=== PATIENT | female | born 2000 | race African-American/Black ===

== ENCOUNTER 2020-12-14 15:02 | Emergency (ER) | payer MEDICAID ==
--- NOTE | 2020-12-14 16:28 | EDM.PDOC ---
ED HPI GENERAL MEDICAL PROBLEM - General Chief Complaint: CONE EXAMINER Problem Stated Complaint: STOMACH PAINS Time Seen by Provider: 12/14/20 15:59 Source of Information: Reports: Patient History Limitations: Reports: No Limitations - History of Present Illness INITIAL COMMENTS - FREE TEXT/NARRATIVE: HISTORY AND PHYSICAL: History of present illness: The patient is a 20-year-old female who presents to the emergency department with complaints of 3 days of light vaginal bleeding. The patient states that she recently moved from [place] to [place]. Her last normal period was in early August. She said she took a test in October which came back positive. She has states that she had a period of time where she was nauseated but that has since passed. She did vomit once yesterday. She states that she has had a couple episodes of diarrhea over the last week. The patient denies any cramping at this time. She has not been seen by an CONE EXAMINER. Patient denies any fever, chills, headache, change in vision, syncope or near syncope. Denies any chest pain, back pain, shortness of breath or cough. Denies any abdominal pain, constipation or dysuria. Has not noted any blood in urine or stool. Patient has been eating and drinking appropriately. Review of systems: As per history of present illness and below otherwise all systems reviewed and negative. Past medical history: As per history of present illness and as reviewed below otherwise noncontributory. Surgical history: As per history of present illness and as reviewed below otherwise noncontributory. Social history: See social history for further information Family history: As per history of present illness and as reviewed below otherwise noncontributory. Physical exam: General: Well developed and well nourished. Alert and orientated x 3. Nontoxic in appearance and in no acute distress. Vital signs are stable and have been reviewed by me. Nursing notes were reviewed. HEENT: Atraumatic, normocephalic, pupils equal and reactive bilaterally, negative for conjunctival pallor or scleral icterus, mucous membranes moist, TMs normal bilaterally, throat clear, neck supple, nontender, trachea midline. No drooling or trismus noted. No meningeal signs. No hot potato voice noted. Lungs: Clear to auscultation bilaterally. No wheezes, rales, or rhonchi. Chest nontender. Normal work of breathing, no accessory muscles used. Heart: S1S2, regular rate and rhythm without overt murmur, gallops, or rubs. No JVD. No peripheral edema Abdomen: Soft, nondistended, nontender. Normoactive bowel sounds. Negative for masses or costovertebral tenderness. Genitourinary: External genitalia normal. Moderate of blood clots noted, cervix closed. Skin: Intact, warm, dry. No lesions or rashes noted. Hematologic: No petechiae or purpra. Mucosa appropriate color and normal nail bed color and refill. Extremities: Atraumatic, moves all extremities per self without difficulty or deficits, negative for cords or calf pain. Neurovascular unremarkable. Neuro: Awake, alert, oriented. Cranial nerves II through XII unremarkable. Cerebellum unremarkable. Motor and sensory unremarkable throughout. Exam nonfocal. Psychiatric: Mood and affect are appropriate. Normal thought process. Answering questions appropriately. Notes: *This patient was seen and evaluated during the 2019 SARS-CoV-2 novel coronavirus pandemic period. Community viral transmission is ongoing at time of this encounter and the emergency department is operating under pandemic response procedures. As the patient is unsure when she became I will do a CBC, CMP, quantitative hCG, type and screen, UA, and OB US. Dr. Pierre did a bedside US and OB US canceled. See procedure note. The patient states that she has a history of PCOS and previously her periods had not been normal. She now states that she had been on control in August when she had her last period. She states that even that menstrual cycle was light. 1745 the patient's quant is 3051 which would put the at around 6 weeks. We will obtain the ultrasound due to the vaginal exam of moderate amount of blood clots, and patient's history of PCOS and irregular menstrual cycle. The patient is agreeable. Vaginal exam completed. The cervical OS did not appear open. Th was a moderate amount of blood clots. The patient tolerated the procedure well. 17:50 The patient refused the OB us. I educated the patient on possible threatened and she still declined the OB US. I will discharge the patient on Nitrofurantoin 100mg po BID 10 days for a URI. I have talked with the patient about today's findings, in addition to providing specific details for plan of care. Reassessment at the time of disposition demonstrates that the patient is in no acute distress. The patient is stable for discharge, counseling was provided and we discussed in great detail signs and symptoms that would prompt them to return to the Emergency Department. Medication, follow up and supportive care measures were reviewed and discussed. Voices understanding and is agreeable to plan of care. Denies any further questions or concerns at this time. Diagnostics: CBC, CMP, quantitative hCG, type and screen, UA Prescription: Nitrofurantoin 100mg po BID 10 days Impression: Threatened , UTI Plan: 1. You were evaluated today on an emergent basis. Your complaints of vaginal bleeding after a positive test was evaluated with blood work and a bedside ultrasound. Your quantitative hCG was 3051 which depicts a of 5 to 6 weeks. Your bedside ultrasound also depicted a of approximately 6 weeks. You did have a moderate amount of blood clots and on your vaginal exam. You have declined your OB US. You are still at risk for a miscarriage. If you have any increase pain or bleeding please return to the emergency department. Urinalysis showed an infection for which I have started you on an antibiotic. 2. You can alternate Tylenol and ibuprofen as needed for pain and fever management. 3. We encourage you to follow up with your primary care provider and/or recommended specialist in the next few days for re-evaluation and further care/management. 4. If your symptoms should worsen, new symptoms develop or any of the signs and symptoms we discussed should arise please return to the emergency room or call 911 (if needed). Definitive disposition and diagnosis as appropriate pending reevaluation and review of above. . lower abdomen Pain Score (Numeric/FACES): 2 - Related Data Allergies Allergy/AdvReac Type Severity Reaction Status Date / Time No Known Allergies Allergy Verified 12/14/20 15:50 Home Meds: Home Meds nitrofurantoin macrocrystaL [Nitrofurantoin] 100 mg PO BID 10 Days #19 capsule 12/14/20 [Rx] Past Medical History CONE EXAMINER History: Reports: Polycystic Ovaries - Infectious Disease History Infectious Disease History: Reports: None Social & Family History - Family History Family Medical History: No Pertinent Family History - Tobacco Use Packs/Tins Daily: 0.5 - Caffeine Use Caffeine Use: Reports: None - Recreational Drug Use Recreational Drug Use: No ED ROS GENERAL - Review of Systems Review Of Systems: Comprehensive ROS is negative, except as noted in HPI. ED EXAM - Physical Exam Exam: See Below (See dictation) Course - Vital Signs Last Recorded V/S: Last Vital Signs Temp 98 F 12/14/20 15:48 Pulse 93 12/14/20 15:48 Resp 16 12/14/20 15:48 BP 119/75 12/14/20 15:48 Pulse Ox 98 12/14/20 15:48 - Orders/Labs/Meds Labs: Laboratory Tests 12/14/20 12/14/20 12/14/20 Range/Units 15:40 15:40 16:23 WBC 6.48 (4.0-11.0) K/uL RBC 4.23 L (4.30-5.90) M/uL Hgb 12.0 (12.0-16.0) g/dL Hct 35.8 L (36.0-46.0) % MCV 84.6 (80.0-98.0) fL MCH 28.4 (27.0-32.0) pg MCHC 33.5 (31.0-37.0) g/dL RDW Std Deviation 48.1 (28.0-62.0) fl RDW Coeff of Yunior 16 H (11.0-15.0) % Plt Count 214 (150-400) K/uL MPV 9.30 (7.40-12.00) fL Neut % (Auto) 54.6 (48.0-80.0) % Lymph % (Auto) 35.8 (16.0-40.0) % [place] % (Auto) 6.6 (0.0-15.0) % Eos % (Auto) 2.8 (0.0-7.0) % Baso % (Auto) 0.2 (0.0-1.5) % Neut # (Auto) 3.5 (1.4-5.7) K/uL Lymph # (Auto) 2.3 (0.6-2.4) K/uL [place] # (Auto) 0.4 (0.0-0.8) K/uL Eos # (Auto) 0.2 (0.0-0.7) K/uL Baso # (Auto) 0.0 (0.0-0.1) K/uL Nucleated RBC % 0.0 /100WBC Nucleated RBCs # 0 K/uL Sodium (136-145) mmol/L Potassium (3.5-5.1) mmol/L Chloride (98-107) mmol/L Carbon Dioxide (21.0-32.0) mmol/L BUN (7.0-18.0) mg/dL Creatinine (0.6-1.0) mg/dL Est Cr Clr Drug Dosing mL/min Estimated GFR (MDRD) ml/min Glucose (74-106) mg/dL Calcium (8.5-10.1) mg/dL Total Bilirubin (0.2-1.0) mg/dL AST (15-37) IU/L ALT (14-63) IU/L Alkaline Phosphatase (46-116) U/L Total Protein (6.4-8.2) g/dL Albumin (3.4-5.0) g/dL Globulin (2.6-4.0) g/dL Albumin/Globulin Ratio (0.9-1.6) HCG, Quant mIU/mL Urine Color YELLOW Urine Appearance SLT CLOUDY Urine pH 5.5 (5.0-8.0) Ur Specific [place] 1.025 (1.001-1.035) Urine Protein 30 H (NEGATIVE) mg/dL Urine Glucose (UA) NEGATIVE (NEGATIVE) mg/dL Urine Ketones NEGATIVE (NEGATIVE) mg/dL Urine Occult Blood LARGE H (NEGATIVE) Urine Nitrite NEGATIVE (NEGATIVE) Urine Bilirubin NEGATIVE (NEGATIVE) Urine Urobilinogen 0.2 (<2.0) EU/dL Ur Leukocyte Esterase NEGATIVE (NEGATIVE) Urine RBC 4-5 (0-2/HPF) Urine WBC 4-6 (0-5/HPF) Ur Epithelial Cells FEW (NONE-FEW) Urine Bacteria 2+ H (NEGATIVE) Urine Mucus LIGHT (NONE-MOD) Urine HCG, Qual POSITIVE (NEGATIVE) Blood Type Antibody Screen 12/14/20 12/14/20 12/14/20 Range/Units 16:23 16:23 16:26 WBC (4.0-11.0) K/uL RBC (4.30-5.90) M/uL Hgb (12.0-16.0) g/dL Hct (36.0-46.0) % MCV (80.0-98.0) fL MCH (27.0-32.0) pg MCHC (31.0-37.0) g/dL RDW Std Deviation (28.0-62.0) fl RDW Coeff of Yuinor (11.0-15.0) % Plt Count (150-400) K/uL MPV (7.40-12.00) fL Neut % (Auto) (48.0-80.0) % Lymph % (Auto) (16.0-40.0) % Talbot % (Auto) (0.0-15.0) % Eos % (Auto) (0.0-7.0) % Baso % (Auto) (0.0-1.5) % Neut # (Auto) (1.4-5.7) K/uL Lymph # (Auto) (0.6-2.4) K/uL [place] # (Auto) (0.0-0.8) K/uL Eos # (Auto) (0.0-0.7) K/uL Baso # (Auto) (0.0-0.1) K/uL Nucleated RBC % /100WBC Nucleated RBCs # K/uL Sodium 138 (136-145) mmol/L Potassium 4.2 (3.5-5.1) mmol/L Chloride 104 (98-107) mmol/L Carbon Dioxide 24.9 (21.0-32.0) mmol/L BUN 11 (7.0-18.0) mg/dL Creatinine 0.8 (0.6-1.0) mg/dL Est Cr Clr Drug Dosing 113.16 mL/min Estimated GFR (MDRD) > 60.0 ml/min Glucose 96 (74-106) mg/dL Calcium 9.4 (8.5-10.1) mg/dL Total Bilirubin 0.5 (0.2-1.0) mg/dL AST 23 (15-37) IU/L ALT 39 (14-63) IU/L Alkaline Phosphatase 53 (46-116) U/L Total Protein 7.2 (6.4-8.2) g/dL Albumin 3.4 (3.4-5.0) g/dL Globulin 3.8 (2.6-4.0) g/dL Albumin/Globulin Ratio 0.9 (0.9-1.6) HCG, Quant 3051.0 mIU/mL Urine Color Urine Appearance Urine pH (5.0-8.0) Ur Specific [place] (1.001-1.035) Urine Protein (NEGATIVE) mg/dL Urine Glucose (UA) (NEGATIVE) mg/dL Urine Ketones (NEGATIVE) mg/dL Urine Occult Blood (NEGATIVE) Urine Nitrite (NEGATIVE) Urine Bilirubin (NEGATIVE) Urine Urobilinogen (<2.0) EU/dL Ur Leukocyte Esterase (NEGATIVE) Urine RBC (0-2/HPF) Urine WBC (0-5/HPF) Ur Epithelial Cells (NONE-FEW) Urine Bacteria (NEGATIVE) Urine Mucus (NONE-MOD) Urine HCG, Qual (NEGATIVE) Blood Type O POSITIVE Antibody Screen NEGATIVE Meds: Medications Discontinued Medications Generic Name Dose Route Start Last Admin Trade Name Freq PRN Reason Stop Dose Admin Ciprofloxacin 500 mg 12/14/20 17:49 12/14/20 17:52 Ciprofloxacin 500 Mg Tab PO 12/14/20 17:50 Not Given ONETIME ONE Nitrofurantoin Macrocrystals 100 mg 12/14/20 17:51 12/14/20 18:09 Nitrofurantoin Monohydrate/Macrocrystalline 100 Mg Cap PO 12/14/20 17:52 100 mg ONETIME ONE Administration Departure - Departure Time of Disposition: 18:13 Disposition: Home, Self-Care 01 Condition: Good Clinical Impression: Threatened UTI (urinary tract infection) during Qualifiers: Trimester: first trimester Qualified Code(s): O23.41 - Unspecified infection of urinary tract in , first trimester - Discharge Information *PRESCRIPTION DRUG MONITORING PROGRAM REVIEWED*: Not Applicable *COPY OF PRESCRIPTION DRUG MONITORING REPORT IN PATIENT LORENA: Not Applicable Prescriptions: nitrofurantoin macrocrystaL [Nitrofurantoin] 100 mg PO BID 10 Days #19 capsule Instructions: Threatened Miscarriage, and Urinary Tract Infection Referrals: PCP,None [Primary Care Provider] - Forms: ED Department Discharge Additional Instructions: The following information is given to patients seen in the emergency department who are being discharged to home. This information is to outline your options for follow-up care. We provide all patients seen in our emergency department with a follow-up referral. The need for follow-up, as well as the timing and circumstances, are variable depending upon the specifics of your emergency department visit. If you don't have a primary care physician on staff, we will provide you with a referral. We always advise you to contact your personal physician following an emergency department visit to inform them of the circumstance of the visit and for follow-up with them and/or the need for any referrals to a consulting specialist. The emergency department will also refer you to a specialist when appropriate. This referral assures that you have the opportunity for follow-up care with a specialist. All of these measure are taken in an effort to provide you with optimal care, which includes your follow-up. Under all circumstances we always encourage you to contact your private physician who remains a resource for coordinating your care. When calling for follow-up care, please make the office aware that this follow-up is from your recent emergency room visit. If for any reason you are refused follow-up, please contact the [facility] Emergency Department at and asked to speak to the emergency department charge nurse. [facility] [address] [place] [id number] [facility] [address] [place] [id number] Plan: 1. You were evaluated today on an emergent basis. Your complaints of vaginal bleeding after a positive test was evaluated with blood work and a bedside ultrasound. Your quantitative hCG was 3051 which depicts a of 5 to 6 weeks. Your bedside ultrasound also depicted a of approximately 6 weeks. You did have a moderate amount of blood clots and on your vaginal exam. You have declined your OB US. You are still at risk for a miscarriage. If you have any increase pain or bleeding please return to the emergency department. Urinalysis showed an infection for which I have started you on an antibiotic. 2. You can alternate Tylenol and ibuprofen as needed for pain and fever management. 3. We encourage you to follow up with your primary care provider and/or recommended specialist in the next few days for re-evaluation and further care/management. 4. If your symptoms should worsen, new symptoms develop or any of the signs and symptoms we discussed should arise please return to the emergency room or call 911 (if needed). Sepsis Event Note (ED) - Evaluation Sepsis Screening Result: No Definite Risk - Focused Exam Vital Signs: Vital Signs Temp Pulse Resp BP Pulse Ox 12/14/20 15:48 98 F 93 16 119/75 98
[2020-12-14 16:59] LABS: BLOOD UREA NITROGEN,BUN 11 mg/dL (7.0-18.0); CARBON DIOXIDE,CO2 24.9 mmol/L (21.0-32.0); CHLORIDE,CL 104 mmol/L (98-107); GLUCOSE RANDOM 96 mg/dL (74-106); POTASSIUM,K 4.2 mmol/L (3.5-5.1); SODIUM,NA 138 mmol/L (136-145)
--- NOTE | 2020-12-14 17:04 | PCM.SN.2 ---
- Free Text/Narrative Note: Bedside transabdominal OB ultrasound Two views obtained. There is a single live intrauterine , heart tones present. No obvious pelvic free fluid. Interpretation: Single Live IUP
[2020-12-14] MEDS ORDERED: Ciprofloxacin 500 MG Tab PO ONE (17:49)
[2020-12-14] MEDS ORDERED: Nitrofurantoin Monohydrate/Macrocrystalline 100 MG Cap PO ONE (17:51)
== END 2020-12-14 18:26 | disposition home or self-care (01) ==
LOC: MW.ED 15:02
DX: O20.0 Threatened abortion (principal); O23.41 Unspecified infection of urinary tract in pregnancy, first trimester; Z72.0 Tobacco use
CPT/HCPCS: 36415; 80053; 81001; 81025; 84702; 85025; 86850; 86900; 86901; 99284; A9270; 99283

== ENCOUNTER 2020-12-16 08:51 | Observation (INO) | payer MEDICAID ==
[2020-12-16] MEDS ORDERED: Lactated Ringers 1,000 ML IV ONE (09:57)
[2020-12-16] MEDS ORDERED: Tranexamic Acid 1,000 MG in Sodium Chloride 0.9% 100 ML IV ONE (10:29)
[2020-12-16 10:46] LABS: BLOOD UREA NITROGEN,BUN 12 mg/dL (7.0-18.0); CARBON DIOXIDE,CO2 24.6 mmol/L (21.0-32.0); CHLORIDE,CL 106 mmol/L (98-107); GLUCOSE RANDOM 96 mg/dL (74-106); POTASSIUM,K 4.1 mmol/L (3.5-5.1); SODIUM,NA 142 mmol/L (136-145)
--- NOTE | 2020-12-16 10:48 | PCM.HP.2 ---
H&P History of Present Illness - General Date of Service: 12/16/20 Admit Problem/Dx: First trimester vaginal bleeding Source of Information: Patient History Limitations: Reports: No Limitations - History of Present Illness Initial Comments - Free Text/Narative: 20 year old G1 at approximately 6 weeks gestation presented to the ED with vaginal bleeding. She was evaluated in the ED two days prior with vaginal bleeding as well. At the initial evaluation, her Hgb was 12 and bHCG was 3051, corresponding to approximately 5-6 weeks gestation. Gestational sac with pole and hearts tones were noted on bed side US per ED provider at that time. Of note, she was also diagnosed with a UTI and antibiotics were prescribed. She was discharged in stable condition and instructed to make an appointment with an OBGYN for close follow up. She noted heavier bleeding and cramping around 0700 this morning and return to the ED. Per ED provider, she had heavy vaginal bleeding with clots, approximately 750cc out in ED. Abdominal US was performed and gestational sac with pole noted to be within the lower uterine segment. No heart tones noted today. Hgb was 10 and bHCG decreased to 1477, consistent with incomplete . Upon my arrival to the ED, the patient was tachycardic and complaining of lightheadedness and dizziness. 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 - Infectious Disease History Infectious Disease History: Reports: None Social & Family History - Family History Family Medical History: No Pertinent Family History - Caffeine Use Caffeine Use: Reports: None H&P Review of Systems - Review of Systems: Review Of Systems: See Below General: Reports: Fatigue HEENT: Reports: No Symptoms Pulmonary: Reports: No Symptoms Cardiovascular: Reports: Lightheadedness Gastrointestinal: Reports: Abdominal Pain, Nausea Genitourinary: Reports: Pain Musculoskeletal: Reports: Back Pain Skin: Reports: No Symptoms Psychiatric: Reports: No Symptoms Neurological: Reports: Dizziness Exam - Exam Exam: See Below - Vital Signs Vital Signs: Last Vital Signs Temp 98.0 F 12/16/20 08:51 Pulse 107 H 12/16/20 10:12 Resp 16 12/16/20 10:12 BP 124/49 L 12/16/20 10:12 Pulse Ox 100 12/16/20 10:12 Weight: 165 lb - Exam General: Alert Lungs: Normal Respiratory Effort Cardiovascular: Tachycardia GI/Abdominal Exam: Soft, Tender (Female) Exam: Fundal Height (6-8 week size), Vaginal Bleeding Rectal (Female) Exam: Deferred Back Exam: Normal Inspection Extremities: Normal Range of Motion, Non-Tender, No Pedal Edema Skin: Warm, Dry, Intact Neuro Extensive - Mental Status: Alert, Normal Mood/Affect Psychiatric: Normal Mood - Patient Data Lab Results Last 24 hrs: Laboratory Results - last 24 hr 12/16/20 12/16/20 12/16/20 Range/Units 09:50 09:50 09:50 WBC 11.72 H (4.0-11.0) K/uL RBC 3.64 L (4.30-5.90) M/uL Hgb 10.4 L (12.0-16.0) g/dL Hct 31.0 L (36.0-46.0) % MCV 85.2 (80.0-98.0) fL MCH 28.6 (27.0-32.0) pg MCHC 33.5 (31.0-37.0) g/dL RDW Std Deviation 48.6 (28.0-62.0) fl RDW Coeff of Yunior 16 H (11.0-15.0) % Plt Count 223 (150-400) K/uL MPV 9.40 (7.40-12.00) fL Neut % (Auto) 69.9 (48.0-80.0) % Lymph % (Auto) 20.3 (16.0-40.0) % Carter % (Auto) 8.0 (0.0-15.0) % Eos % (Auto) 1.7 (0.0-7.0) % Baso % (Auto) 0.1 (0.0-1.5) % Neut # (Auto) 8.2 H (1.4-5.7) K/uL Lymph # (Auto) 2.4 (0.6-2.4) K/uL Carter # (Auto) 0.9 H (0.0-0.8) K/uL Eos # (Auto) 0.2 (0.0-0.7) K/uL Baso # (Auto) 0.0 (0.0-0.1) K/uL Nucleated RBC % 0.0 /100WBC Nucleated RBCs # 0 K/uL Sodium 142 (136-145) mmol/L Potassium 4.1 (3.5-5.1) mmol/L Chloride 106 (98-107) mmol/L Carbon Dioxide 24.6 (21.0-32.0) mmol/L BUN 12 (7.0-18.0) mg/dL Creatinine 0.8 (0.6-1.0) mg/dL Est Cr Clr Drug Dosing TNP Estimated GFR (MDRD) > 60.0 ml/min Glucose 96 (74-106) mg/dL Calcium 9.3 (8.5-10.1) mg/dL Total Bilirubin 0.5 (0.2-1.0) mg/dL AST 18 (15-37) IU/L ALT 23 (14-63) IU/L Alkaline Phosphatase 48 (46-116) U/L Total Protein 6.2 L (6.4-8.2) g/dL Albumin 3.1 L (3.4-5.0) g/dL Globulin 3.1 (2.6-4.0) g/dL Albumin/Globulin Ratio 1.0 (0.9-1.6) HCG, Quant 1477.0 mIU/mL Crossmatch See Detail Result Diagrams: 12/16/20 11:15 12/16/20 09:50 Sepsis Event Note - Evaluation Sepsis Screening Result: No Definite Risk - Focused Exam Vital Signs: Vital Signs Temp Pulse Resp BP Pulse Ox 12/16/20 10:12 107 H 16 124/49 L 100 12/16/20 09:50 113 H 18 134/90 100 12/16/20 09:27 90 18 123/91 H 95 12/16/20 08:51 98.0 F 90 18 124/80 100 Problem List Initiated/Reviewed/Updated: Yes Orders Last 24hrs: Active Orders 24 hr Category Date Time Status OB Transvaginal [US] Stat Exams 12/16/20 09:24 Taken RED BLOOD CELLS LP [BBK] Stat Lab 12/16/20 09:50 Results TYPE AND SCREEN [BBK] Stat Lab 12/16/20 09:50 Results Lactated Ringers [Ringers, Lactated] 1,000 ml Med 12/16/20 09:57 Active IV .BOLUS Medication Orders Lactated Ringer's (Ringers, Lactated) 1,000 mls @ 999 mls/hr IV .BOLUS ONE Stop: 12/16/20 10:57 Last Admin: 12/16/20 09:59 Dose: 999 mls/hr Documented by: LAILA Assessment/Plan Comment:: 20 year old G1 at approximately 6 weeks gestation with incomplete * Options for management reviewed including surgical treatment of heavy vaginal bleeding. Risks of suction dilation and curettage discussed including infection, bleeding with need for blood transfusion, uterine perforation with need for additional procedures and remote risk of anesthesia complications including . Questions elicited and answered. * Anesthesia and OR were notified of patient's status and need to proceed with urgent suction dilation and curettage. Type and cross for 2u of pRBCs was ordered per ED physician, however, due to patient's symptoms and ongoing blood loss, 1u pRBCs along with TXA was transfused en route to the OR. * Will proceed with suction dilation and curettage for incomplete . - Mortality Measure Prognosis:: Good
[2020-12-16] MEDS ORDERED: Ondansetron 4 MG/2 ML SDV ONE ×2 (11:05)
[2020-12-16] MEDS ORDERED: Propofol 200 MG/20 ML SDV ONE (11:05)
[2020-12-16] MEDS ORDERED: Lidocaine 2% 5 ML SDV ONE (11:05)
[2020-12-16] MEDS ORDERED: Metoclopramide 10 MG/2 ML SDV ONE (11:06)
[2020-12-16] MEDS ORDERED: Methylergonovine 0.2 MG/1 ML Amp ONE (11:09)
[2020-12-16] MEDS ORDERED: Dexamethasone 4 MG/ML 5 ML MDV ONE (11:14)
[2020-12-16] MEDS ORDERED: Misoprostol 200 MCG Tab ONE (11:15)
--- NOTE | 2020-12-16 11:16 | US ---
INDICATION: Heavy bleeding TECHNIQUE: Ultrasound OB pelvis transabdominal and transvaginal. Real-time schmitz-scale imaging of the pelvis was performed. COMPARISON: None FINDINGS: Sonographic images demonstrate a gestational sac with a pole in the lower uterine segment. The gestational sac is somewhat oblong in shape. There is no apparent cardiac activity. There is a normal appearing yolk sac. There are no gross abnormalities noted within the embryo at this early state of development. The placenta has not yet developed. There is no sign of perigestational hemorrhage. The ovaries are of normal size. There are no suspicious fluid collections noted in the cul-de-sac. IMPRESSION: Demonstration of a low lying gestational sac and pole measuring 8 weeks 5 days without cardiac activity. These findings are concerning for spontaneous . Recommend continued follow-up with serial beta HCG and ultrasound. Dictated by Royce Simon MD @ 12/16/2020 11:15:[address] Royce Simon @ Dec 16 2020 11:15AM
[2020-12-16] MEDS ORDERED: Oxytocin 10 Units/1 ML SDV ONE ×2 (11:22→11:29)
[2020-12-16] MEDS ORDERED: Carboprost Tromethamine 250 MCG/1 ML Amp ONE (11:23)
[2020-12-16] MEDS ORDERED: Ketorolac 30 MG/ML SDV IVPUSH PRN (11:35)
[2020-12-16] MEDS ORDERED: Ketorolac 30 MG/ML SDV IVPUSH ONE (11:35)
[2020-12-16] MEDS ORDERED: Ondansetron 4 MG/2 ML SDV IVPUSH PRN ×2 (11:35→11:43)
[2020-12-16] MEDS ORDERED: Promethazine 25 MG/ML SDV IM PRN (11:35)
[2020-12-16] MEDS ORDERED: Acetaminophen/oxyCODONE 325-5 MG Tab PO PRN (11:35)
[2020-12-16] MEDS ORDERED: Morphine 4 MG/ML Syringe IVPUSH PRN (11:35)
[2020-12-16] MEDS ORDERED: Naloxone 0.4 MG/ML Syringe IVPUSH PRN (11:43)
[2020-12-16] MEDS ORDERED: fentaNYL 100 MCG/2 ML SDV IVPUSH PRN (11:43)
[2020-12-16] MEDS ORDERED: Albuterol 0.083% 2.5 MG/3 ML Neb Soln NEB PRN (11:43)
[2020-12-16] MEDS ORDERED: HYDROmorphone 2 MG/ML Syringe IVPUSH PRN (11:43)
[2020-12-16] MEDS ORDERED: Morphine 10 MG/ML Syringe IVPUSH PRN (11:43)
[2020-12-16] MEDS ORDERED: Metoclopramide 10 MG/2 ML SDV IVPUSH PRN (11:43)
--- NOTE | 2020-12-16 11:46 | PCM.PREANE ---
Preanesthetic Assessment - Anesthesia/Transfusion/Family Hx Anesthesia History: Prior Anesthesia Without Reaction Family History of Anesthesia Reaction: No Transfusion History: No Prior Transfusion(s) - Review of Systems General: No Symptoms, Weakness, Fatigue Pulmonary: No Symptoms Cardiovascular: No Symptoms, Lightheadedness Gastrointestinal: No Symptoms Neurological: No Symptoms Other: Reports: None - Physical Assessment NPO Status Date: 12/16/20 NPO Status Time: 05:00 Vital Signs: Last Vital Signs Temp 98.0 F 12/16/20 08:51 Pulse 127 H 12/16/20 10:50 Resp 20 12/16/20 10:50 BP 106/78 12/16/20 10:50 Pulse Ox 100 12/16/20 10:50 Weight: 165 lb ASA Class: 2E Mental Status: Alert & Oriented x3 Airway Class: Mallampati = 1 Dentition: Reports: Normal Dentition Thyro-Mental Finger Breadths: 4 Mouth Opening Finger Breadths: 4 ROM/Head Extension: Full Lungs: Clear to Auscultation, Normal Respiratory Effort Cardiovascular: Regular Rate, Regular Rhythm - Lab Values: Laboratory Last Values WBC 11.72 K/uL (4.0-11.0) H 12/16/20 09:50 RBC 3.64 M/uL (4.30-5.90) L 12/16/20 09:50 Hgb 9.5 g/dL (12.0-16.0) L 12/16/20 11:15 Hct 28.0 % (36.0-46.0) L 12/16/20 11:15 MCV 85.2 fL (80.0-98.0) 12/16/20 09:50 MCH 28.6 pg (27.0-32.0) 12/16/20 09:50 MCHC 33.5 g/dL (31.0-37.0) 12/16/20 09:50 RDW Std Deviation 48.6 fl (28.0-62.0) 12/16/20 09:50 RDW Coeff of Yunior 16 % (11.0-15.0) H 12/16/20 09:50 Plt Count 223 K/uL (150-400) 12/16/20 09:50 MPV 9.40 fL (7.40-12.00) 12/16/20 09:50 Neut % (Auto) 69.9 % (48.0-80.0) 12/16/20 09:50 Lymph % (Auto) 20.3 % (16.0-40.0) 12/16/20 09:50 Perkins % (Auto) 8.0 % (0.0-15.0) 12/16/20 09:50 Eos % (Auto) 1.7 % (0.0-7.0) 12/16/20 09:50 Baso % (Auto) 0.1 % (0.0-1.5) 12/16/20 09:50 Neut # (Auto) 8.2 K/uL (1.4-5.7) H 12/16/20 09:50 Lymph # (Auto) 2.4 K/uL (0.6-2.4) 12/16/20 09:50 Perkins # (Auto) 0.9 K/uL (0.0-0.8) H 12/16/20 09:50 Eos # (Auto) 0.2 K/uL (0.0-0.7) 12/16/20 09:50 Baso # (Auto) 0.0 K/uL (0.0-0.1) 12/16/20 09:50 Nucleated RBC % 0.0 /100WBC 12/16/20 09:50 Nucleated RBCs # 0 K/uL 12/16/20 09:50 Sodium 142 mmol/L (136-145) 12/16/20 09:50 Potassium 4.1 mmol/L (3.5-5.1) 12/16/20 09:50 Chloride 106 mmol/L (98-107) 12/16/20 09:50 Carbon Dioxide 24.6 mmol/L (21.0-32.0) 12/16/20 09:50 BUN 12 mg/dL (7.0-18.0) 12/16/20 09:50 Creatinine 0.8 mg/dL (0.6-1.0) 12/16/20 09:50 Est Cr Clr Drug Dosing TNP 12/16/20 09:50 Estimated GFR (MDRD) > 60.0 ml/min 12/16/20 09:50 Glucose 96 mg/dL (74-106) 12/16/20 09:50 Calcium 9.3 mg/dL (8.5-10.1) 12/16/20 09:50 Total Bilirubin 0.5 mg/dL (0.2-1.0) 12/16/20 09:50 AST 18 IU/L (15-37) 12/16/20 09:50 ALT 23 IU/L (14-63) 12/16/20 09:50 Alkaline Phosphatase 48 U/L (46-116) 12/16/20 09:50 Total Protein 6.2 g/dL (6.4-8.2) L 12/16/20 09:50 Albumin 3.1 g/dL (3.4-5.0) L 12/16/20 09:50 Globulin 3.1 g/dL (2.6-4.0) 12/16/20 09:50 Albumin/Globulin Ratio 1.0 (0.9-1.6) 12/16/20 09:50 HCG, Quant 1477.0 mIU/mL 12/16/20 09:50 Blood Type O POSITIVE 12/16/20 09:50 Antibody Screen NEGATIVE 12/16/20 09:50 Crossmatch See Detail 12/16/20 09:50 - Allergies Allergies/Adverse Reactions: Allergies Allergy/AdvReac Type Severity Reaction Status Date / Time No Known Allergies Allergy Verified 12/14/20 15:50 - Blood Blood Available: Yes Product(s) Available: PRBC - Acknowledgements Anesthesia Type Planned: General Anesthesia Pt an Appropriate Candidate for the Planned Anesthesia: Yes Alternatives and Risks of Anesthesia Discussed w Pt/Guardian: Yes Pt/Guardian Understands and Agrees with Anesthesia Plan: Yes PreAnesthesia Questionnaire - Past Health History Medical/Surgical History: Denies Medical/Surgical History [employer] History: Reports: Polycystic Ovaries - Infectious Disease History Infectious Disease History: Reports: None - SUBSTANCE USE Tobacco Use Within Last Twelve Months: No - HOME MEDS Home Medications: Home Meds nitrofurantoin macrocrystaL [Nitrofurantoin] 100 mg PO BID 10 Days #19 capsule 12/14/20 [Rx] - CURRENT (IN HOUSE) MEDS Current Meds: Current Medications Ketorolac Tromethamine (Ketorolac 30 Mg/Ml Sdv) 30 mg IVPUSH ONETIME ONE Stop: 12/16/20 11:36 Ketorolac Tromethamine (Ketorolac 30 Mg/Ml Sdv) 30 mg IVPUSH Q6H PRN PRN Reason: Pain (severe 7-10) Stop: 12/21/20 11:35 Morphine Sulfate (Morphine 4 Mg/Ml Syringe) 4 mg IVPUSH Q2H PRN PRN Reason: Pain (severe 7-10) Ondansetron HCl (Ondansetron 4 Mg/2 Ml Sdv) 4 mg IVPUSH Q6H PRN PRN Reason: Nausea/Vomiting Oxycodone/Acetaminophen (Acetaminophen/Oxycodone 325-5 Mg Tab) 1 tab PO Q4H PRN PRN Reason: Pain (moderate 4-6) Promethazine HCl (Promethazine 25 Mg/Ml Sdv) 25 mg IM Q6H PRN PRN Reason: Nausea/Vomiting Discontinued Medications Carboprost Tromethamine (Carboprost Tromethamine 250 Mcg/1 Ml Amp) Confirm Administered Dose 250 mcg .ROUTE .STK-MED ONE Stop: 12/16/20 11:24 Dexamethasone (Dexamethasone 4 Mg/Ml 5 Ml Mdv) Confirm Administered Dose 20 mg .ROUTE .STK-MED ONE Stop: 12/16/20 11:15 Lactated Ringer's (Ringers, Lactated) 1,000 mls @ 999 mls/hr IV .BOLUS ONE Stop: 12/16/20 10:57 Last Admin: 12/16/20 09:59 Dose: 999 mls/hr Documented by: Tranexamic Acid 1,000 mg/ (Sodium Chloride) 110 mls @ 600 mls/hr IV ONETIME ONE Stop: 12/16/20 10:39 Last Admin: 12/16/20 10:56 Dose: 600 mls/hr Documented by: Lidocaine (Lidocaine 2% 5 Ml Sdv) Confirm Administered Dose 5 ml .ROUTE .STK-MED ONE Stop: 12/16/20 11:06 Methylergonovine Maleate (Methylergonovine 0.2 Mg/1 Ml Amp) Confirm Administered Dose 0.2 mg .ROUTE .STK-MED ONE Stop: 12/16/20 11:10 Metoclopramide HCl (Metoclopramide 10 Mg/2 Ml Sdv) Confirm Administered Dose 10 mg .ROUTE .STK-MED ONE Stop: 12/16/20 11:07 Misoprostol (Misoprostol 200 Mcg Tab) Confirm Administered Dose 400 mcg .ROUTE .STK-MED ONE Stop: 12/16/20 11:16 Ondansetron HCl (Ondansetron 4 Mg/2 Ml Sdv) Confirm Administered Dose 4 mg .ROUTE .STK-MED ONE Stop: 12/16/20 11:06 Ondansetron HCl (Ondansetron 4 Mg/2 Ml Sdv) Confirm Administered Dose 4 mg .ROUTE .STK-MED ONE Stop: 12/16/20 11:06 Oxytocin (Oxytocin 10 Units/1 Ml Sdv) Confirm Administered Dose 10 unit .ROUTE .STK-MED ONE Stop: 12/16/20 11:23 Oxytocin (Oxytocin 10 Units/1 Ml Sdv) Confirm Administered Dose 20 unit .ROUTE .STK-MED ONE Stop: 12/16/20 11:30 Propofol (Propofol 200 Mg/20 Ml Sdv) Confirm Administered Dose 200 mg .ROUTE .STK-MED ONE Stop: 12/16/20 11:06 Tranexamic Acid (Tranexamic Acid 1,000 Mg/10 Ml Amp) Confirm Administered Dose 1,000 mg .ROUTE .STK-MED ONE Stop: 12/16/20 10:34 Last Admin: 12/16/20 10:38 Dose: Not Given Documented by:
--- NOTE | 2020-12-16 11:47 | PCM.POSTAN ---
POST ANESTHESIA ASSESSMENT - MENTAL STATUS Mental Status: Somnolent - VITAL SIGNS Vital Signs: Last Vital Signs Temp 97.0 F 12/16/20 11:35 Pulse 113 H 12/16/20 11:41 Resp 13 12/16/20 11:41 BP 145/86 H 12/16/20 11:41 Pulse Ox 100 12/16/20 11:41 - RESPIRATORY Respiratory Status: Respiratory Rate WNL, Airway Patent, O2 Saturation Stable - CARDIOVASCULAR CV Status: Blood Pressure Stable, Elevated Pulse Rate - GASTROINTESTINAL GI Status: [place], Vomiting - POST OP HYDRATION Hydration Status: Adequate & Stable
--- NOTE | 2020-12-16 11:47 | PCM48HPAN ---
Post Anesthesia Note - EVALUATION WITHIN 48HRS OF ANESTHETIC Vital Signs in Normal Range: Yes Patient Participated in Evaluation: Yes Respiratory Function Stable: Yes Airway Patent: Yes Cardiovascular Function Stable: Yes Hydration Status Stable: Yes Pain Control Satisfactory: Yes Nausea and Vomiting Control Satisfactory: Yes Mental Status Recovered: Yes Vital Signs: Last Vital Signs Temp 97.0 F 12/16/20 11:35 Pulse 113 H 12/16/20 11:41 Resp 13 12/16/20 11:41 BP 145/86 H 12/16/20 11:41 Pulse Ox 100 12/16/20 11:41
--- NOTE | 2020-12-16 11:56 | PCM.OPNOTE ---
- General Post-Op/Procedure Note Date of Surgery/Procedure: 12/16/20 Operative Procedure(s): Suction dilation and curettage Findings: 9 week sized anteverted uterus Pre Op Diagnosis: 1. Incomplete with hemorrhage Post-Op Diagnosis: 1. Incomplete with hemorrhage Anesthesia Technique: General ET Tube Primary Surgeon: Princess Hernandez Anesthesia Provider: Rell Plascencia Pathology: Products of conception Fluid Replacement, Intraop: 2,000 Output, Urine Amount: 5 EBL in mLs: 200 (800cc in ED ) Complications: None known Condition: Serious Free Text/Narrative:: Dictation #[id number]
--- NOTE | 2020-12-16 15:16 | OR ---
SURGEON: PRINCESS HERNANDEZ MD DATE OF PROCEDURE: 12/16/2020 PREOPERATIVE DIAGNOSIS: Incomplete with hemorrhage. POSTOPERATIVE DIAGNOSIS: Incomplete with hemorrhage. PROCEDURE: Suction dilation and curettage. PRIMARY SURGEON: Princess Hernandez MD ANESTHESIA: General endotracheal. ANESTHESIA PROVIDER: Dr. Rell Plascencia. COMPLICATIONS: None known. ESTIMATED BLOOD LOSSS: 200 mL intraoperatively. Approximately 800 mL of blood loss in emergency department prior to procedure. INTRAVENOUS FLUID: 2000 mL of crystalloid. TRANSFUSION: 1 unit of packed red blood cells, unmatched. URINE OUTPUT: 5 mL straight catheterized prior to procedure. FINDINGS: Approximately 9-week size anteverted uterus. PATHOLOGY: Products of conception. PROCEDURE IN DETAIL: The patient was urgently taken to the operating room from the emergency department due to ongoing heavy vaginal bleeding and diagnosis of incomplete . On transfer, the patient received IV TXA along with transfusion of 1 unit of packed red blood cells. Anesthesia was introduced, and she was prepped and draped in dorsal lithotomy position. Prior to the start of procedure, the patient received 2 g of Ancef due to her recent history of urinary tract infection. A time-out was held prior to the start of the procedure. An open- sided Graves speculum was then inserted into the vagina to visualize the cervix, and a long Allis clamp was then used to grasp the cervix at 12 o'clock. A small amount of tissue noted within the cervical os, which was removed with ring forceps and sent to Pathology. Cervical dilation was then noted, and a #8 curved suction curette was advanced to the fundus and was attached to suction and rotated to clear the uterus of products of conception. This was carried out approximately 5 more times until no tissue noted on return. Sharp curettage was then performed until a gritty texture was noted. Suction curettage was then performed once more. Continued vaginal bleeding was noted at this time, and the patient received IM Methergine along with 400 mcg of Cytotec rectally. Fundal massage was carried out, and suction curettage was performed once more. A small amount of oozing continued, and IM Hemabate was then administered with continued fundal massage. Allis clamp was then removed, and bleeding from the cervix was then noted to decrease significantly. All instruments were then removed from the vagina. Good hemostasis was noted. The patient tolerated the procedure well. Sponge, lap, and needle count were correct x2. She was taken to recovery in stable condition. CLAIR / KRISTINE /[id number] MTDD
--- NOTE | 2020-12-16 18:52 | EDM.PDOC ---
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 The patient was seen 2 days prior with a intrauterine and was sent home with close follow-up. The patient presents today with vaginal bleeding that started this morning when she started to have heavy vaginal bleeding with clots. She states that it was a significant amount. She states that she was going to follow-up with the clinic today however she started to bleed so she came to the emergency department. She states that she does have some pelvic pain which radiates to her back. She rates this as mild 3-4 out of 10 cramping without any other symptoms. She denies any dysuria. She denies any fever or chills. REVIEW OF SYSTEMS: Constitutional: Denies fever, chills. Eyes: Denies eye pain Ears, Nose, Mouth, & Throat: Denies earache Cardiovascular: Denies chest pain, dizziness respiratory: Denies shortness of breath Gastrointestinal: Denies Nausea, vomiting, diarrhea, hematochezia. Genitourinary: Positive for vaginal bleeding and pelvic cramping. Denies hematuria Skin:Denies a rash MSK: Denies joint pain Neurological: Denies blurred vision Psychiatric: Denies depression PAST MEDICAL HISTORY: As per history of present illness and as reviewed below otherwise noncontributory. SURGICAL HISTORY: As per history of present illness and as reviewed below otherwise noncontributory. SOCIAL HISTORY: As per history of present illness and as reviewed below otherwise noncontributory. FAMILY HISTORY: As per history of present illness and as reviewed below otherwise noncontributory. EXAMINATION OF ORGAN SYSTEMS/BODY AREAS: Constitutional: Blood pressure is 124/80, heart rate 90, respiratory rate 18 with an oxygen saturation of 100% on room air. Temperature 36.7 General: Overall well-appearing woman who is in no acute distress Psychiatric: Appropriate mood and affect. Eyes: No scleral icterus or conjunctival erythema ENMT: Moist mucous membranes. No pharyngeal erythema Cardiovascular: Regular, rate, and rhythm. No gallops, murmurs, or rubs. Bilateral upper extremity pulses symmetric and intact. No peripheral edema. No JVD. Capillary refill less than 2 seconds Respiratory: Lungs clear to auscultation bilaterally. No wheezes, rales, or rhonchi. Gastrointestinal: Soft, non-tender, non-distended. Normoactive bowel sounds Genitourinary: No suprapubic tenderness Musculoskeletal: Normal range of motion. Skin: No lesions or abrasions. Neurological: Alert, GCS 15 MEDICAL DECISION MAKING AND COURSE IN THE ED WITH INTERPRETATION/REVIEW OF DIAGNOSTIC STUDIES: This is a 20-year-old woman who was evaluated 2 days ago for vaginal bleeding and was diagnosed with at approximately 6-week who comes to the emergency department with vaginal bleeding and passing large clots since this morning who has stable vital signs. At this time we will prepare for a pelvic examination and obtain repeat laboratory analysis including CBC, CMP, quantitative hCG, type and screen. We will obtain a Covid swab. We placed the patient on panel monitor and pulse oximetry. I did perform a bedside transabdominal ultrasound which did reveal a gestational sac with a pole without any heartbeat today. I did discuss this with the patient. Therefore I do believe the patient is experiencing a miscarriage. We will monitor the patient while awaiting laboratory analysis. We will obtain a transvaginal ultrasound for further evaluation While the patient went to the restroom to urinate the patient continued to have large volume clots and bright red bleeding. Therefore at this time we did start 1 L bolus and attempted to perform a bedside pelvic examination. The patient would not tolerate speculum examination therefore I did perform bimanual examination with RN nadia Allred in presence. There was significant amount of clots in the vaginal canal and cervical os did appear to be open. The patient continued to have bright red bleeding and passage of clots and started to complain of dizziness and not feeling well. On examination the patient was cool, clammy and had some vomiting. panel monitor did reveal sinus tachycardia up to the 150s and blood pressure continued to remain stable. Pulse oximetry at this time was 98%. With good at this time I did arrange for 2 units of on matched blood to be transfused into the patient. We did obtain written consent for this. There was a significant delay from ultrasound they were uncomfortable with obtaining an ultrasound transvaginally. I repeated my transabdominal ultrasound again there was no free fluid in the pelvis and there was a gestational sac with a pole without any heart tones or beat. We also provide the patient with 1 g of TXA. I did contact obstetrics and spoke with Dr. Mayes and Dr. Hernandez and Dr. Hernandez will come and evaluate the patient. Dr. Hernandez did come bedside and stated that the patient needed to go to the operating room for D&C. She paged anesthesia and started 1 unit of PRBCs prior to transfer to the operating room. Laboratory: CBC reveals a normocytic anemia with a hemoglobin of 10.4 and hematocrit of 31 which is decreased from prior at 12. CMP is unremarkable except for hypoalbuminemia at 3.1. Patient's quantitative hCG is 1477 which is decreased from prior. Covid is negative. Blood type is O+. After transfer to the operating room the patient's ultrasound was finally read. The radiological images were viewed by myself along with reading the report from the radiologist. Transabdominal ultrasound reveals a low-lying gestational sac and pole measuring 8 weeks 5 days without any cardiac activity. DISPOSITION: The patient was taken to the operating room emergently CONDITION: Serious PROCEDURES: Bedside transabdominal OB ultrasound, panel monitor interpretation, pulse oximetry interpretation FINAL IMPRESSION(S)/DIAGNOSES: 1. Acute blood loss anemia secondary to vaginal bleeding from incomplete 2. Acute tachycardia likely secondary #1 Critical Care Procedure Note Authorized and performed by: Jose Pierre M.D. Critical Care Time: 60 minutes Due to a high probability of clinically significant, life threatening deterioration, the patient required my highest level of preparedness to intervene emergently and I personally spent this critical care time directly and personally managing the patient. This critical care time included obtaining a history, examining the patient, pulse oximetry; ordering and review of studies; arranging urgent treatment with development of a management plan; evaluation of a patients reponse to treatment; frequent assessment; and discussions with other providers. This critical care time was performed to assess and manage the high probability of imminent, life threatening deterioration that could result in multiorgan failure. It was exclusive of separate billable procedures and treating other patients. Please see MDM section and rest of the note for further information on patient assessment and treatment. Please see MDM section and rest of the note for further information on patient assessment and treatment. Jose Pierre M.D. 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 - Infectious Disease History Infectious Disease History: Reports: None Social & Family History - Family History Family Medical History: No Pertinent Family History - Tobacco Use Tobacco Use Status *Q: Former Tobacco User Used Tobacco, but Quit: No - Caffeine Use Caffeine Use: Reports: Soda - Recreational Drug Use Recreational Drug Use: Yes Recreational Drug Type: Reports: Marijuana/Hashish Recreational Drug Use Frequency: Daily ED ROS GENERAL - Review of Systems Review Of Systems: See Below ED EXAM, GENERAL - Physical Exam Exam: See Below GI/Abdominal: Soft, Tender Back Exam: Normal Inspection Extremities: Normal Range of Motion, Non-Tender, No Pedal Edema Course - Vital Signs Last Recorded V/S: Last Vital Signs Temp 36.7 C 12/16/20 17:10 Pulse 104 H 12/16/20 17:10 Resp 14 12/16/20 17:10 BP 120/76 12/16/20 17:10 Pulse Ox 98 12/16/20 17:10 - Orders/Labs/Meds Orders: Active Orders 24 hr Category Date Time Status Admission Status [Patient Status] [ADT] Stat ADT 12/16/20 10:48 Active RED BLOOD CELLS LP [BBK] Stat Lab 12/16/20 09:50 Results TYPE AND SCREEN [BBK] Stat Lab 12/16/20 09:50 Results Labs: Laboratory Tests 12/16/20 12/16/20 12/16/20 Range/Units 09:50 09:50 09:50 WBC 11.72 H (4.0-11.0) K/uL RBC 3.64 L (4.30-5.90) M/uL Hgb 10.4 L (12.0-16.0) g/dL Hct 31.0 L (36.0-46.0) % MCV 85.2 (80.0-98.0) fL MCH 28.6 (27.0-32.0) pg MCHC 33.5 (31.0-37.0) g/dL RDW Std Deviation 48.6 (28.0-62.0) fl RDW Coeff of Yunior 16 H (11.0-15.0) % Plt Count 223 (150-400) K/uL MPV 9.40 (7.40-12.00) fL Neut % (Auto) 69.9 (48.0-80.0) % Lymph % (Auto) 20.3 (16.0-40.0) % Porter % (Auto) 8.0 (0.0-15.0) % Eos % (Auto) 1.7 (0.0-7.0) % Baso % (Auto) 0.1 (0.0-1.5) % Neut # (Auto) 8.2 H (1.4-5.7) K/uL Lymph # (Auto) 2.4 (0.6-2.4) K/uL Porter # (Auto) 0.9 H (0.0-0.8) K/uL Eos # (Auto) 0.2 (0.0-0.7) K/uL Baso # (Auto) 0.0 (0.0-0.1) K/uL Nucleated RBC % 0.0 /100WBC Nucleated RBCs # 0 K/uL Sodium 142 (136-145) mmol/L Potassium 4.1 (3.5-5.1) mmol/L Chloride 106 (98-107) mmol/L Carbon Dioxide 24.6 (21.0-32.0) mmol/L BUN 12 (7.0-18.0) mg/dL Creatinine 0.8 (0.6-1.0) mg/dL Est Cr Clr Drug Dosing TNP Estimated GFR (MDRD) > 60.0 ml/min Glucose 96 (74-106) mg/dL Calcium 9.3 (8.5-10.1) mg/dL Total Bilirubin 0.5 (0.2-1.0) mg/dL AST 18 (15-37) IU/L ALT 23 (14-63) IU/L Alkaline Phosphatase 48 (46-116) U/L Total Protein 6.2 L (6.4-8.2) g/dL Albumin 3.1 L (3.4-5.0) g/dL Globulin 3.1 (2.6-4.0) g/dL Albumin/Globulin Ratio 1.0 (0.9-1.6) HCG, Quant 1477.0 mIU/mL Blood Type O POSITIVE Antibody Screen NEGATIVE Crossmatch See Detail 12/16/20 12/16/20 Range/Units 11:15 11:15 WBC (4.0-11.0) K/uL RBC (4.30-5.90) M/uL Hgb Cancelled 9.5 L (12.0-16.0) g/dL Hct Cancelled 28.0 L (36.0-46.0) % MCV (80.0-98.0) fL MCH (27.0-32.0) pg MCHC (31.0-37.0) g/dL RDW Std Deviation (28.0-62.0) fl RDW Coeff of Yunior (11.0-15.0) % Plt Count (150-400) K/uL MPV (7.40-12.00) fL Neut % (Auto) (48.0-80.0) % Lymph % (Auto) (16.0-40.0) % Porter % (Auto) (0.0-15.0) % Eos % (Auto) (0.0-7.0) % Baso % (Auto) (0.0-1.5) % Neut # (Auto) (1.4-5.7) K/uL Lymph # (Auto) (0.6-2.4) K/uL Porter # (Auto) (0.0-0.8) K/uL Eos # (Auto) (0.0-0.7) K/uL Baso # (Auto) (0.0-0.1) K/uL Nucleated RBC % /100WBC Nucleated RBCs # K/uL Sodium (136-145) mmol/L Potassium (3.5-5.1) mmol/L Chloride (98-107) mmol/L Carbon Dioxide (21.0-32.0) mmol/L BUN (7.0-18.0) mg/dL Creatinine (0.6-1.0) mg/dL Est Cr Clr Drug Dosing Estimated GFR (MDRD) ml/min Glucose (74-106) mg/dL Calcium (8.5-10.1) mg/dL Total Bilirubin (0.2-1.0) mg/dL AST (15-37) IU/L ALT (14-63) IU/L Alkaline Phosphatase (46-116) U/L Total Protein (6.4-8.2) g/dL Albumin (3.4-5.0) g/dL Globulin (2.6-4.0) g/dL Albumin/Globulin Ratio (0.9-1.6) HCG, Quant mIU/mL Blood Type Antibody Screen Crossmatch Meds: Medications Discontinued Medications Generic Name Dose Route Start Last Admin Trade Name Freq PRN Reason Stop Dose Admin Albuterol 2.5 mg 12/16/20 11:43 Albuterol 0.083% 2.5 Mg/3 Ml Neb Soln NEB ONETIME PRN Wheezing Carboprost Tromethamine Confirm 12/16/20 11:23 Carboprost Tromethamine 250 Mcg/1 Ml Amp Administered 12/16/20 11:24 Dose 250 mcg .ROUTE .STK-MED ONE Dexamethasone Confirm 12/16/20 11:14 Dexamethasone 4 Mg/Ml 5 Ml Mdv Administered 12/16/20 11:15 Dose 20 mg .ROUTE .STK-MED ONE Droperidol 0.625 mg 12/16/20 11:43 Droperidol 5 Mg/2 Ml Sdv IVPUSH ONETIME PRN Nausea/Vomiting Fentanyl 50 mcg 12/16/20 11:43 Fentanyl 100 Mcg/2 Ml Sdv IVPUSH Q5M PRN Pain (mild 1-3) Hydromorphone HCl 0.5 mg 12/16/20 11:43 Hydromorphone 2 Mg/Ml Syringe IVPUSH Q10M PRN Pain (moderate 4-6) Lactated Ringer's 1,000 mls @ 999 mls/hr 12/16/20 09:57 12/16/20 09:59 Ringers, Lactated IV 12/16/20 10:57 999 mls/hr .BOLUS ONE Administration Tranexamic Acid 1,000 mg/ 110 mls @ 600 mls/hr 12/16/20 10:29 12/16/20 10:56 Sodium Chloride IV 12/16/20 10:39 600 mls/hr ONETIME ONE Administration Ketorolac Tromethamine 30 mg 12/16/20 11:35 12/16/20 12:47 Ketorolac 30 Mg/Ml Sdv IVPUSH 12/16/20 11:36 30 mg ONETIME ONE Administration Ketorolac Tromethamine 30 mg 12/16/20 11:35 Ketorolac 30 Mg/Ml Sdv IVPUSH 12/21/20 11:35 Q6H PRN Pain (severe 7-10) Lidocaine Confirm 12/16/20 11:05 Lidocaine 2% 5 Ml Sdv Administered 12/16/20 11:06 Dose 5 ml .ROUTE .STK-MED ONE Methylergonovine Maleate Confirm 12/16/20 11:09 Methylergonovine 0.2 Mg/1 Ml Amp Administered 12/16/20 11:10 Dose 0.2 mg .ROUTE .STK-MED ONE Metoclopramide HCl Confirm 12/16/20 11:06 Metoclopramide 10 Mg/2 Ml Sdv Administered 12/16/20 11:07 Dose 10 mg .ROUTE .STK-MED ONE Metoclopramide HCl 10 mg 12/16/20 11:43 Metoclopramide 10 Mg/2 Ml Sdv IVPUSH ONETIME PRN Nausea/Vomiting Misoprostol Confirm 12/16/20 11:15 Misoprostol 200 Mcg Tab Administered 12/16/20 11:16 Dose 400 mcg .ROUTE .STK-MED ONE Morphine Sulfate 4 mg 12/16/20 11:35 12/16/20 13:28 Morphine 4 Mg/Ml Syringe IVPUSH 4 mg Q2H PRN Administration Pain (severe 7-10) Morphine Sulfate 2 mg 12/16/20 11:43 Morphine 10 Mg/Ml Syringe IVPUSH Q10M PRN Pain (severe 7-10) Naloxone HCl 0.1 mg 12/16/20 11:43 Naloxone 0.4 Mg/Ml Syringe IVPUSH ASDIRECTED PRN Respiratory Depression Ondansetron HCl Confirm 12/16/20 11:05 Ondansetron 4 Mg/2 Ml Sdv Administered 12/16/20 11:06 Dose 4 mg .ROUTE .STK-MED ONE Ondansetron HCl Confirm 12/16/20 11:05 Ondansetron 4 Mg/2 Ml Sdv Administered 12/16/20 11:06 Dose 4 mg .ROUTE .STK-MED ONE Ondansetron HCl 4 mg 12/16/20 11:35 Ondansetron 4 Mg/2 Ml Sdv IVPUSH Q6H PRN Nausea/Vomiting Ondansetron HCl 4 mg 12/16/20 11:43 Ondansetron 4 Mg/2 Ml Sdv IVPUSH ONETIME PRN Nausea/Vomiting Oxycodone/Acetaminophen 1 tab 12/16/20 11:35 Acetaminophen/Oxycodone 325-5 Mg Tab PO Q4H PRN Pain (moderate 4-6) Oxytocin Confirm 12/16/20 11:22 Oxytocin 10 Units/1 Ml Sdv Administered 12/16/20 11:23 Dose 10 unit .ROUTE .STK-MED ONE Oxytocin Confirm 12/16/20 11:29 Oxytocin 10 Units/1 Ml Sdv Administered 12/16/20 11:30 Dose 20 unit .ROUTE .STK-MED ONE Promethazine HCl 25 mg 12/16/20 11:35 Promethazine 25 Mg/Ml Sdv IM Q6H PRN Nausea/Vomiting Propofol Confirm 12/16/20 11:05 Propofol 200 Mg/20 Ml Sdv Administered 12/16/20 11:06 Dose 200 mg .ROUTE .STK-MED ONE Tranexamic Acid Confirm 12/16/20 10:33 12/16/20 10:38 Tranexamic Acid 1,000 Mg/10 Ml Amp Administered 12/16/20 10:34 Not Given Dose 1,000 mg .ROUTE .STK-MED ONE Departure - Departure Time of Disposition: 10:57 Disposition: Admitted As Inpatient 66 Condition: Serious Clinical Impression: Acute blood loss anemia, Incomplete - Discharge Information Sepsis Event Note (ED) - Evaluation Sepsis Screening Result: No Definite Risk - Focused Exam Vital Signs: Vital Signs Temp Pulse Resp BP Pulse Ox 12/16/20 10:50 127 H 20 106/78 100 12/16/20 10:12 107 H 16 124/49 L 100 12/16/20 09:50 113 H 18 134/90 100 12/16/20 09:27 90 18 123/91 H 95 12/16/20 08:51 36.7 C 90 18 124/80 100 - My Orders Last 24 Hours: My Active Orders 12/16/20 09:50 RED BLOOD CELLS LP [BBK] Stat TYPE AND SCREEN [BBK] Stat - Assessment/Plan Last 24 Hours: My Active Orders 12/16/20 09:50 RED BLOOD CELLS LP [BBK] Stat TYPE AND SCREEN [BBK] Stat
== END 2020-12-16 18:05 | disposition home or self-care (01) ==
LOC: MW.ED 08:51 → MW.SDS 10:57 → MW.MS 11:35
PROVIDERS: ADMIT Obstetrics & Gynecology; ATTEND Obstetrics & Gynecology
DX: O03.1 Delayed or excessive hemorrhage following incomplete spontaneous abortion (principal); D62 Acute posthemorrhagic anemia; Z79.899 Other long term (current) drug therapy; Z87.891 Personal history of nicotine dependence; Z01.812 Encounter for preprocedural laboratory examination; Z20.822 Contact with and (suspected) exposure to COVID-19
CPT/HCPCS: 36415; 36430; 59812; 76817; 80053; 84702; 85014; 85018; 85025; 86850; 86900; 86901; 86920; 86921; 86922; 87635; 96374; 99285; A9270; G0378; J1100; J1885; J2210; J2270; J2590; J2704; J7120; P9016; 01965; 88305; 99284; J2405; J2765; U0002

== ENCOUNTER 2022-11-17 15:08 | Emergency (ER) | payer MEDICAID ==
[2022-11-17 16:21] LABS: APPEARANCE,URINE CLEAR; BILIRUBIN,URINE NEGATIVE (NEGATIVE); COLOR,URINE YELLOW; GLUCOSE,URINE NEGATIVE (NEGATIVE); KETONES,URINE NEGATIVE (NEGATIVE); LEUKOCYTE ESTERASE,URINE SMALL (NEGATIVE); NITRITE,URINE NEGATIVE (NEGATIVE); OCCULT BLOOD,URINE NEGATIVE (NEGATIVE); PH,URINE 6.5 (5.0-8.0); PROTEIN,URINE NEGATIVE (NEGATIVE); UROBILINOGEN,URINE 0.2 EU/dL (<2.0)
[2022-11-17 16:28] LABS: BACTERIA,URINE 1+ (NEGATIVE); EPITHELIAL CELLS,URINE MODERATE (NONE-FEW); RBC,URINE 0-1 (0-2/HPF)
[2022-11-17 16:36] LABS: BASOPHILS PERCENT AUTO 0.4 % (0.0-1.5); EOSINOPHILS ABSOLUTE AUTO 0.2 K/uL (0.0-0.7); EOSINOPHILS PERCENT AUTO 3.3 % (0.0-7.0); HEMATOCRIT 38.8 % (36.0-46.0); HEMOGLOBIN 12.6 g/dL (12.0-16.0); LYMPHOCYTES PERCENT AUTO 34.9 % (16.0-40.0); MEAN CORPUSCULAR HEMOGLOBIN 25.7 pg (27.0-32.0); MEAN CORPUSCULAR HGB CONC 32.5 g/dL (31.0-37.0); MEAN CORPUSCULAR VOLUME 79.2 fL (80.0-98.0); MONOCYTES ABSOLUTE AUTO 0.7 K/uL (0.0-0.8); MONOCYTES PERCENT AUTO 12.8 % (0.0-15.0); NEUTROPHILS ABSOLUTE AUTO 2.8 K/uL (1.4-5.7); NEUTROPHILS PERCENT AUTO 48.6 % (48.0-80.0); NRBC ABSOLUTE 0 K/uL; PLATELET COUNT,PLT 263 K/uL (150-400)
[2022-11-17 17:18] LABS: A/G RATIO 0.8 (0.9-1.6); ALBUMIN 3.5 g/dL (3.4-5.0); BILIRUBIN TOTAL 0.5 mg/dL (0.2-1.0); CALCIUM 9.4 mg/dL (8.5-10.1); CARBON DIOXIDE,CO2 25.4 mmol/L (21.0-32.0); CREATININE 0.9 mg/dL (0.6-1.0); EST CRCL DRUG DOSING (CG) 95.35 mL/min; POTASSIUM,K 4.3 mmol/L (3.5-5.1); PROTEIN TOTAL,TP 7.8 g/dL (6.4-8.2)
[2022-11-17 17:22] LABS: CANDIDA DNA PROBE NEGATIVE (NEGATIVE); GARDNERELLA DNA PROBE POSITIVE (NEGATIVE); TRICHOMONAS DNA PROBE POSITIVE (NEGATIVE)
[2022-11-17 18:05] LABS: C. TRACHOMATIS BY PCR NOT DETECTED; N. GONORRHOEAE BY PCR NOT DETECTED
== END 2022-11-17 18:58 | disposition home or self-care (01) ==
LOC: MW.ED 15:08
DX: N76.0 Acute vaginitis (principal); B96.89 Other specified bacterial agents as the cause of diseases classified elsewhere
CPT/HCPCS: 36415; 76857; 76857-26; 80053; 81001; 81025; 85025; 87480; 87491; 87510; 87591; 87660; 99284

== ENCOUNTER 2023-01-26 16:10 | Emergency (ER) | payer MEDICAID ==
[2023-01-26] MEDS ORDERED: Ketorolac 60 MG/2 ML SDV IM ONE (16:34)
[2023-01-26 16:50] LABS: BASOPHILS PERCENT AUTO 0.3 % (0.0-1.5); EOSINOPHILS ABSOLUTE AUTO 0.2 K/uL (0.0-0.7); EOSINOPHILS PERCENT AUTO 3.1 % (0.0-7.0); HEMOGLOBIN 12.9 g/dL (12.0-16.0); LYMPHOCYTES ABSOLUTE AUTO 2.8 K/uL (0.6-2.4); LYMPHOCYTES PERCENT AUTO 36.1 % (16.0-40.0); MEAN CORPUSCULAR HEMOGLOBIN 26.8 pg (27.0-32.0); MEAN CORPUSCULAR HGB CONC 33.1 g/dL (31.0-37.0); MEAN CORPUSCULAR VOLUME 80.9 fL (80.0-98.0); MONOCYTES ABSOLUTE AUTO 0.6 K/uL (0.0-0.8); MONOCYTES PERCENT AUTO 7.8 % (0.0-15.0); NEUTROPHILS ABSOLUTE AUTO 4.1 K/uL (1.4-5.7); NEUTROPHILS PERCENT AUTO 52.7 % (48.0-80.0); NRBC ABSOLUTE 0 K/uL; PLATELET COUNT,PLT 270 K/uL (150-400); RED BLOOD CELL COUNT 4.82 M/uL (4.30-5.90); WHITE BLOOD CELL COUNT,WBC 7.79 K/uL (4.0-11.0)
[2023-01-26 17:13] LABS: A/G RATIO 0.9 (0.9-1.6); ALBUMIN 3.9 g/dL (3.4-5.0); BILIRUBIN TOTAL 0.9 mg/dL (0.2-1.0); CALCIUM 9.8 mg/dL (8.5-10.1); CARBON DIOXIDE,CO2 24.5 mmol/L (21.0-32.0); CREATININE 0.9 mg/dL (0.6-1.0); EST CRCL DRUG DOSING (CG) 91.79 mL/min; POTASSIUM,K 3.8 mmol/L (3.5-5.1); PROTEIN TOTAL,TP 8.2 g/dL (6.4-8.2)
== END 2023-01-26 18:40 | disposition home or self-care (01) ==
LOC: MW.ED 16:10
DX: N94.6 Dysmenorrhea, unspecified (principal)
CPT/HCPCS: 36415; 80053; 84703; 85025; 96372; 99284; J1885; 99283

== ENCOUNTER 2023-09-16 15:45 | Emergency (ER) | payer SELFPAY | END 2023-09-16 17:21 | disposition left against medical advice (07) | LOC: MW.ED 15:45 | DX: Z53.21 Procedure and treatment not carried out due to patient leaving prior to being seen by health care provider (principal) ==

== ENCOUNTER 2023-12-27 06:47 | Emergency (ER) | payer SELFPAY ==
[2023-12-27 07:53] LABS: CORONAVIRUS COVID-19 NAA POSITIVE (NEGATIVE); INFLUENZA A NAA NEGATIVE (NEGATIVE); INFLUENZA B NAA NEGATIVE (NEGATIVE)
== END 2023-12-27 08:13 | disposition home or self-care (01) ==
LOC: MW.ED 06:47
DX: O98.512 Other viral diseases complicating pregnancy, second trimester (principal); U07.1 COVID-19; Z3A.00 Weeks of gestation of pregnancy not specified; Z79.899 Other long term (current) drug therapy
CPT/HCPCS: 0240U; 99283

== ENCOUNTER 2024-01-06 11:53 | Emergency (ER) | payer MEDICAID ==
[2024-01-06] MEDS: diphenhydrAMINE 50 MG/ML SDV IVPUSH STA (12:30)
[2024-01-06] MEDS: Sodium Chloride 0.9% 1,000 ML IV STA (12:30)
[2024-01-06] MEDS: Metoclopramide 10 MG/2 ML SDV IVPUSH STA (12:31)
[2024-01-06] MEDS: Acetaminophen 500 MG Tab PO STA (12:46)
[2024-01-06] MEDS: Promethazine 25 MG/ML SDV IM STA (12:48)
== END 2024-01-06 13:04 | disposition home or self-care (01) ==
LOC: MW.ED 11:53
DX: O26.892 Other specified pregnancy related conditions, second trimester (principal); M54.50 Low back pain, unspecified; Z3A.00 Weeks of gestation of pregnancy not specified; Z75.8 Other problems related to medical facilities and other health care
CPT/HCPCS: 99284; A9270

== ENCOUNTER 2024-04-10 19:54 | Inpatient (IN) | payer MEDICAID ==
[2024-04-10 21:35] LABS: BASOPHILS ABSOLUTE AUTO 0.02 K/uL (0.00-0.20); BASOPHILS PERCENT AUTO 0.2 % (0.0-1.0); EOSINOPHILS ABSOLUTE AUTO 0.16 K/uL (0.00-0.45); EOSINOPHILS PERCENT AUTO 1.9 % (0.0-6.0); HEMATOCRIT 30.5 % (37.0-47.0); HEMOGLOBIN 10.5 g/dL (12.0-16.0); IMMATURE GRAN ABSOLUTE AUTO 0.04 K/uL (0.00-0.05); IMMATURE GRAN PERCENT AUTO 0.5 % (0.0-0.4); LYMPHOCYTES ABSOLUTE AUTO 2.27 K/uL (1.00-4.80); LYMPHOCYTES PERCENT AUTO 27.3 % (24.0-44.0); MEAN CORPUSCULAR HEMOGLOBIN 30.6 pg (28.0-32.0); MEAN CORPUSCULAR HGB CONC 34.4 g/dL (32.0-36.0); MEAN CORPUSCULAR VOLUME 88.9 fL (83.0-99.0); MEAN PLATELET VOLUME 9.3 fL (9.4-12.3); MONOCYTES ABSOLUTE AUTO 0.56 K/uL (0.00-0.80); MONOCYTES PERCENT AUTO 6.7 % (0.0-8.0); NEUTROPHILS ABSOLUTE AUTO 5.27 K/uL (1.80-7.70); NEUTROPHILS PERCENT AUTO 63.4 % (41.0-71.0); PLATELET COUNT,PLT 186 K/uL (150-400); RED BLOOD CELL COUNT 3.43 M/uL (4.10-5.30); WHITE BLOOD CELL COUNT,WBC 8.32 K/uL (3.9-11.3)
[2024-04-10 21:40] LABS: APPEARANCE,URINE CLEAR; BILIRUBIN,URINE NEGATIVE (NEGATIVE); COLOR,URINE YELLOW; GLUCOSE,URINE NEGATIVE (NEGATIVE); KETONES,URINE NEGATIVE (NEGATIVE); LEUKOCYTE ESTERASE,URINE NEGATIVE (NEGATIVE); NITRITE,URINE NEGATIVE (NEGATIVE); OCCULT BLOOD,URINE NEGATIVE (NEGATIVE); PH,URINE 6.5 (5.0-8.0); PROTEIN,URINE NEGATIVE (NEGATIVE); UROBILINOGEN,URINE 0.2 EU/dL (<2.0)
[2024-04-10 21:49] LABS: AMPHETAMINES SCREEN, URINE NEGATIVE (CUTOFF=500); BARBITURATE SCREEN,URINE NEGATIVE (CUTOFF=200); BENZODIAZEPINES SCREEN,URINE NEGATIVE (CUTOFF=150); BUPRENORPHINE SCREEN,URINE NEGATIVE (CUTOFF=10); METHADONE SCREEN, URINE NEGATIVE (CUTOFF=200); METHAMPHETAMINES SCREEN, URINE NEGATIVE (CUTOFF=500); OXYCODONE SCREEN,URINE NEGATIVE (CUT0FF=100); PCP SCREEN,URINE NEGATIVE (CUTOFF=25); THC SCREEN,URINE 20 NG/ML PRESUMPTIVE POSITIVE (CUTOFF=50)
[2024-04-10 21:52] LABS: BACTERIA,URINE FEW (NEGATIVE); EPITHELIAL CELLS,URINE RARE (NONE-FEW); RBC,URINE 0-1 (0-2/HPF); WBC,URINE 0-1 (0-5/HPF)
[2024-04-10 21:55] LABS: CREATININE,URINE RAND 73.4 mg/dL; PROTEIN CREATININE RATIO,URINE 0.2; PROTEIN,URINE RANDOM 15.1 mg/dL (<11.9)
[2024-04-10 22:01] LABS: A/G RATIO 0.7 (0.9-1.6); ALBUMIN 2.5 g/dL (3.4-5.0); BILIRUBIN TOTAL 0.4 mg/dL (0.2-1.0); CALCIUM 9.8 mg/dL (8.5-10.1); CREATININE 0.7 mg/dL (0.6-1.0); EST CRCL DRUG DOSING (CG) 111.51 mL/min; POTASSIUM,K 3.6 mmol/L (3.5-5.1); PROTEIN TOTAL,TP 6.2 g/dL (6.4-8.2); URIC ACID 7.4 mg/dL (2.6-7.2); URIC ACID 7.6 mg/dL (2.6-7.2)
[2024-04-10] MEDS ORDERED: Calcium Gluconate 10% 1 GM/10 ML SDV IV PRN (23:23)
[2024-04-10] MEDS ORDERED: NIFEdipine 10 MG Cap PO PRN (23:23)
[2024-04-10] MEDS ORDERED: Sodium Chloride 0.9% 10 ML Syringe FLUSH PRN (23:23)
[2024-04-10] MEDS ORDERED: Labetalol 100 MG/20 ML MDV IVPUSH PRN (23:23)
[2024-04-10] MEDS ORDERED: Sodium Chloride 0.9% 2.5 ML Syringe FLUSH PRN (23:23)
[2024-04-10] MEDS ORDERED: Sodium Chloride 0.9% 20 ML SDV IV PRN (23:23)
[2024-04-11] MEDS: Ropivacaine HCl/PF 400 MG in Premix Bag 1 BAG EPIDUR SCH (00:55)
[2024-04-11] MEDS ORDERED: Bupivacaine 0.25% 10 ML SDV ONE (00:59)
[2024-04-11] MEDS ORDERED: Phenylephrine HCl In 0.9% NaCl 1 MG/10 ML Syringe ONE (00:59)
[2024-04-11] MEDS ORDERED: Ropivacaine HCl/PF 200 ML ONE (00:59)
[2024-04-11] MEDS ORDERED: dexmedeTOMIDine HCl 200 MCG/2 ML SDV ONE (00:59)
[2024-04-11] MEDS ORDERED: Phenylephrine HCl In 0.9% NaCl 1 MG/10 ML Syringe IVPUSH PRN (01:07)
[2024-04-11] MEDS ORDERED: ePHEDrine 50 MG/ML SDV IVPUSH PRN (01:07)
[2024-04-11] MEDS: Magnesium Sulfate/Water Premix 4 GM in Premix Bag 1 BAG IV ONE (01:11)
[2024-04-11] MEDS ORDERED: dexmedeTOMIDine HCl 200 MCG/2 ML SDV EPIDUR SCH (01:15)
[2024-04-11] MEDS: Ondansetron 4 MG/2 ML SDV ONE (01:25)
[2024-04-11] MEDS: Magnesium Sulfate/Water Premix 20 GM/500 ML BAG IV SCH (01:36)
[2024-04-11] MEDS ORDERED: Water For Irrigation,Sterile 1,000 ML Container IRR PRN (01:39)
[2024-04-11] MEDS ORDERED: Terbutaline 1 MG/ML SDV SUBCUT PRN (01:39)
[2024-04-11] MEDS ORDERED: Sodium Chloride 0.9% 10 ML Syringe FLUSH PRN (01:39)
[2024-04-11] MEDS ORDERED: Lidocaine 1% 50 ML MDV INJECT PRN (01:39)
[2024-04-11] MEDS ORDERED: Sodium Chloride 0.9% 20 ML SDV IV PRN (01:39)
[2024-04-11] MEDS ORDERED: Butorphanol 2 MG/ML SDV IVPUSH PRN (01:39)
[2024-04-11] MEDS ORDERED: Sodium Chloride 0.9% 2.5 ML Syringe FLUSH PRN (01:39)
[2024-04-11] MEDS ORDERED: Misoprostol 200 MCG Tab PO PRN (01:39)
[2024-04-11] MEDS ORDERED: Methylergonovine 0.2 MG/1 ML Amp IM PRN (01:39)
[2024-04-11] MEDS ORDERED: Carboprost Tromethamine 250 MCG/1 mL Vial IM PRN (01:39)
[2024-04-11] MEDS ORDERED: Oxytocin/0.9 % Sodium Chloride 30 UNIT/500 ML BAG IV SCH (01:45)
[2024-04-11] MEDS: Lactated Ringers 1,000 ML IV SCH (02:04)
[2024-04-11] MEDS: Ampicillin 2 GM in Sodium Chloride 0.9% 100 ML IV ONE (02:09)
[2024-04-11] MEDS: Misoprostol 25 MCG (1/4 of 100 MCG) Tab VAG PRN (02:19)
[2024-04-11] MEDS ORDERED: Misoprostol 25 MCG (1/4 of 100 MCG) Tab VAG PRN (06:00)
[2024-04-11] MEDS: Ampicillin 1 GM in Sodium Chloride 0.9% 50 ML IV SCH (06:26)
[2024-04-11] MEDS: Ondansetron 4 MG/2 ML SDV IVPUSH PRN (10:44)
[2024-04-11] MEDS: Oxytocin/0.9 % Sodium Chloride 30 UNIT/500 ML BAG IV SCH (12:20)
[2024-04-11] MEDS ORDERED: Benzocaine/Menthol 20%-0.5% Spray 78 GM Cannister TOP PRN (12:59)
[2024-04-11] MEDS ORDERED: Lanolin 100% Cream 7 GM Tube TOP PRN (12:59)
[2024-04-11] MEDS ORDERED: Witch Hazel Medicated Pads 40/Jar TOP PRN (12:59)
[2024-04-11] MEDS ORDERED: Docusate Sodium 100 MG Cap PO PRN (12:59)
[2024-04-11] MEDS ORDERED: oxyCODONE 5 MG Tab PO PRN (12:59)
[2024-04-11] MEDS ORDERED: Ibuprofen 800 MG Tab PO PRN (12:59)
[2024-04-11 14:09] LABS: PH,UMBILICAL ARTERIAL 7.193 (7.18-7.38); PH,UMBILICAL VENOUS 7.276 (7.25-7.45)
[2024-04-11] MEDS: Acetaminophen 500 MG Tab PO PRN (15:14)
[2024-04-12 06:02] LABS: MEAN CORPUSCULAR HEMOGLOBIN 30.5 pg (28.0-32.0); MEAN CORPUSCULAR HGB CONC 34.5 g/dL (32.0-36.0); MEAN CORPUSCULAR VOLUME 88.4 fL (83.0-99.0); MEAN PLATELET VOLUME 9.3 fL (9.4-12.3); PLATELET COUNT,PLT 192 K/uL (150-400); RED BLOOD CELL COUNT 3.28 M/uL (4.10-5.30); WHITE BLOOD CELL COUNT,WBC 11.01 K/uL (3.9-11.3)
[2024-04-12 06:31] LABS: A/G RATIO 0.6 (0.9-1.6); ALBUMIN 2.1 g/dL (3.4-5.0); BILIRUBIN TOTAL 0.5 mg/dL (0.2-1.0); CALCIUM 8.8 mg/dL (8.5-10.1); CARBON DIOXIDE,CO2 25.3 mmol/L (21.0-32.0); CREATININE 0.9 mg/dL (0.6-1.0); EST CRCL DRUG DOSING (CG) 86.73 mL/min; POTASSIUM,K 3.8 mmol/L (3.5-5.1); PROTEIN TOTAL,TP 5.5 g/dL (6.4-8.2)
== END 2024-04-13 11:10 | disposition home or self-care (01) | DRG 807 ==
LOC: MW.OBCHECK 19:54 → MW.OB 19:54 → MW.OBCHECK 04-11 01:39 → OBSVTOIN 04-11 12:59 → MW.OB 04-11 19:51
PROVIDERS: ADMIT Obstetrics & Gynecology; ATTEND Obstetrics & Gynecology
PROC: 10E0XZZ Delivery of Products of Conception, External Approach (ICD-10-PCS; principal; 2024-04-11)
PROC: 10907ZC Drainage of Amniotic Fluid, Therapeutic from Products of Conception, Via Natural or Artificial Opening (ICD-10-PCS; 2024-04-11)
PROC: 3E033VJ Introduction of Other Hormone into Peripheral Vein, Percutaneous Approach (ICD-10-PCS; 2024-04-11)
PROC: 3E0R3BZ Introduction of Anesthetic Agent into Spinal Canal, Percutaneous Approach (ICD-10-PCS; 2024-04-11)
PROC: 00HU33Z Insertion of Infusion Device into Spinal Canal, Percutaneous Approach (ICD-10-PCS; 2024-04-11)
DX: O14.14 Severe pre-eclampsia complicating childbirth (principal); Z37.0 Single live birth; O99.824 Streptococcus B carrier state complicating childbirth; O99.324 Drug use complicating childbirth; F12.90 Cannabis use, unspecified, uncomplicated; O13.4 Gestational [pregnancy-induced] hypertension without significant proteinuria, complicating childbirth; Z3A.39 39 weeks gestation of pregnancy
CPT/HCPCS: 01967; 36415; 51702; 59025; 59409; 76815; 76815-26; 80053; 80305-QW; 81001; 82570; 82803; 83615; 83735; 84156; 84450; 84460; 84520; 84550; 85025; 85027; 86592; 86850; 86900; 86901; 87340; A9270-GY; J0290; J2371; J2405; J2590; J2795; J3475; J3490; J7120